=== PATIENT | male | born 1945 | race Caucasian/White ===

== ENCOUNTER → 2024-01-18 08:21 | Outpatient (REF) | payer MEDICARE, OTHER, SELFPAY | LOC: RCS 08:21 | PROVIDERS: ATTENDING PHYSICIAN Internal Medicine Cardiovascular Disease; FAMILY PHYSICIAN Family Medicine | DX: I34.0 Nonrheumatic mitral (valve) insufficiency (principal) | CPT/HCPCS: 93306 ==